=== PATIENT | female | born 1955 | race Caucasian/White ===

== ENCOUNTER 2024-09-27 17:57 | Emergency (ER) | payer OTHER, SELFPAY ==
--- NOTE | ~2024-09-27 | XR_ITS ---
EXAM: XR thoracic spine 3V DATE: 09/27/2024 18:46 HISTORY: fall, right mid back pain . COMPARISON: None available. FINDINGS: Vertebral body alignment intact. Vertebral body heights preserved. Multilevel moderate deg enerative disc disease. Flowing ossification of the anterior longitudinal ligament as can be seen wit h DISH. No traumatic malalignment or fracture. Visualized lung parenchyma is clear. Cholecystectomy c lips. IMPRESSION: No acute fracture or traumatic malalignment detected in the thoracic spine. Reviewed, dictated and finalized at location K. OR PROJECT MANAGER IMPRESSION: No acute fracture or traumatic malalignment detected in the thoraci c spine.
--- NOTE | ~2024-09-27 | XR_ITS ---
EXAMINATION: XR ribs RT 2V Exam Date/Time: 09/27/2024 18:34 PRESENTATION SPECIALIST HISTORY: fall-posterior rib pain Comparison: None available. RESULT: Lines, tubes, and devices: Cholecystectomy clips. ACDF hardware. Lungs and pleura: Clear. Cardiothymic silhouette: Stable. Other: No acute osseous or upper abdominal finding. IMPRESSION: No acute cardiopulmonary process. No acute osseous finding in the right ribs. Reviewed, dictated and finalized at location K. ENTATION SPECIALIST
--- NOTE | 2024-09-27 18:14 | ED.BACK ---
HPI - Back Pain/Injury General Chief Complaint: Back Pain/Injury Stated Complaint: Back Pain Time Seen by Provider: 09/27/24 17:59 Source: patient Mode of arrival: ambulatory Limitations: no limitations History of Present Illness HPI Narrative: Adele is a 68-year-old female patient presenting to the clinic today with complaints of right mid back pain and right posterior rib pain. She reports that she fell on the snow when a dog pulled her when she was walking the dog. Landed on her left hip and has an abrasion to the left elbow however she is complaining right mid back pain as well as the right posterior rib pain. States that she took Tylenol and a muscle relaxer around 2:00pm today and then took a Zofran for nausea around 4:30pm. Denies hitting her head or any loss of consciousness. Denies neck pain. Denies any loss of bowel or bladder. Denies any saddle anesthesia. Related Data Home Medications Medication Instructions Recorded Confirmed allopurinol 100 mg tablet 200 mg PO DAILY 09/27/24 09/27/24 atorvastatin 20 mg tablet 20 mg PO DAILY 09/27/24 09/27/24 bupropion HCl 150 mg 24 hr tablet, 150 mg PO DAILY 09/27/24 09/27/24 extended release lisinopril 10 mg tablet 10 mg PO DAILY 09/27/24 09/27/24 metoprolol succinate 50 mg 50 mg PO DAILY 09/27/24 09/27/24 tablet,extended release 24 hr ondansetron 4 mg disintegrating 4 mg PO PRN PRN Nausea 09/27/24 09/27/24 tablet tirzepatide 5 mg/0.5 mL 5 mg subcut WEEKLY 09/27/24 09/27/24 subcutaneous pen injector (Khrisuntaz) triamterene 37.5 1 tablet PO DAILY 09/27/24 09/27/24 mg-hydrochlorothiazide 25 mg tablet Allergies Allergy/AdvReac Type Severity Reaction Status Date / Time butorphanol [From Stadol] AdvReac Severe Hallucinati Verified 09/27/24 18:51 ng meperidine [From Demerol] AdvReac Intermediate Palpitation Verified 09/27/24 18:51 s Review of Systems Review of Systems: Pertinent positives per HPI. Patient denies any fever, chills, rash, headache, visual changes, dizziness, cough, runny nose, sore throat, shortness of breath, chest pain, palpitations, nausea, vomiting, diarrhea, constipation, abdominal pain, or any urinary issues. PMFSH Comments At the time of my signature, I reviewed and agree with the nursing past medical, surgical, social, and family history. There is no relevant family history pertinent to the patient complaint. Exam Narrative: General: Well-developed, well nourished, in no apparent distress Head: Normocephalic, atraumatic. Cardio: Regular rate and rhythm, s1 and s2 normal, no murmur appreciated. Resp: Clear to auscultation bilaterally, no rhonchi, rales, wheezing or rubs. Musculoskeletal: No deformity, abrasion to the left elbow-nontender to palpation, tender to palpation over the right mid thoracic back and right posterior rib, grossly normal range of motion, muscle strength strong and equal in BLE. SLT negative, patellar reflexes 2/4 bilaterally, negative foot drop, normal gait and station Course Course Emergency Course: Portions of this record may have been created with voice recognition software. Level of Care: Express Care Visit Vital Signs Vital signs: Vital Signs Temperature 36.0 C L 09/27/24 18:16 Pulse Rate 66 09/27/24 18:16 Respiratory Rate 16 09/27/24 18:16 Blood Pressure 129/62 09/27/24 18:16 Pulse Oximetry 100 09/27/24 18:16 Temperature 36.0 C L 09/27/24 18:16 Pulse Rate 66 09/27/24 18:16 Respiratory Rate 16 09/27/24 18:16 Blood Pressure 129/62 09/27/24 18:16 Pulse Oximetry 100 09/27/24 18:16 Vital signs reviewed MDM - Back Pain/Injury MDM Narrative Medical decision making narrative: At the time of visit patient is resting comfortably on the exam table. Patient appears to be nontoxic. Medications: Toradol 60 mg IM and Zofran 4 mg ODT given in the clinic today Diagnostics: X-ray of the thoracic spine and right ribs are negative for any sign of fracture or malalignment. Plan: I suspect patient has thoracic muscle strain, rib contusion, and abrasion to the left elbow. Will send in prescription for hydrocodone for moderate to severe pain. Supportive measures were discussed with the patient and they voiced understanding discharge instructions and agrees to treatment plan. Return precautions reviewed Differential Diagnosis Differential diagnosis: Likely thoracic back pain and other (Rib fracture, vertebral fracture, soft tissue injury, contusion, abrasion,) Discharge Plan Discharge Clinical Impression: Strain of muscle and tendon of back wall of thorax, initial encounter Contusion of rib on right side Qualifiers: Encounter type: initial encounter Qualified Code(s): S20.211A - Contusion of right front wall of thorax, initial encounter Abrasion of elbow Qualifiers: Encounter type: initial encounter Laterality: left Qualified Code(s): S50.312A - Abrasion of left elbow, initial encounter Patient Disposition: Home, Self-Care Condition: Stable Instructions: Antibiotic Form Additional Instructions: X-ray of the right ribs and thoracic spine were negative for any sign of fracture or malalignment. Toradol 60 mg IM and Zofran 4 mg ODT was given in the clinic today. May continue taking Tylenol as needed for pain as well as muscle relaxer. Take hydrocodone for moderate to severe pain as directed. This medication has Tylenol in it-do not exceed the more than 3 g of Tylenol per day Be mindful of sedation precautions given to you if taking a muscle relaxer. May use heat or ice to the affected area May use blue emu, lidocaine patches, or asper cream to affected area- do not apply heat or ice directly over cream- can cause burn. Complete appropriate back stretching exercises. Follow up with your PCP in 3-5 days if symptom persist. Prescriptions: New hydrocodone-acetaminophen 5-325 mg tablet 1 tablet PO Q6H PRN (Reason: pain) 3 Days Qty: 12 0RF No Action atorvastatin 20 mg tablet 20 mg PO DAILY metoprolol succinate 50 mg tablet extended release 24 hr 50 mg PO DAILY allopurinol 100 mg tablet 200 mg PO DAILY lisinopril 10 mg tablet 10 mg PO DAILY triamterene-hydrochlorothiazid 37.5-25 mg tablet 1 tablet PO DAILY ondansetron 4 mg tablet,disintegrating 4 mg PO PRN PRN (Reason: Nausea) bupropion HCl 150 mg tablet extended release 24 hr 150 mg PO DAILY Mounjaro 5 mg/0.5 mL pen injector 5 mg SUBCUT WEEKLY Follow-up/Referrals: PHYSICIAN,PERIOPERATIVE NURSE [Primary Care Provider] - Time of Disposition: 19:36 Quality NIHSS Nursing Documentation ED NIHSS nursing documentation: reviewed/agree
[2024-09-27 18:16] VITALS: BP 129/62; PULSE 66; RESP 16; TEMP 36; O2SAT 100
[2024-09-27] MEDS: ONDANSETRON HCL ODT 4 MG TABLET SUBLINGUAL (18:24)
[2024-09-27] MEDS: KETOROLAC (*BKC) 60 MG/2 ML VIAL IM (18:58)
== END 2024-09-27 19:38 | disposition home or self-care (01) ==
PROVIDERS: Emergency Provider Nurse Practitioner Family
DX: S29.012A Strain of muscle and tendon of back wall of thorax, initial encounter (principal); S29.011A Strain of muscle and tendon of front wall of thorax, initial encounter; W19.XXXA Unspecified fall, initial encounter; Y93.K1 Activity, walking an animal; Y92.9 Unspecified place or not applicable; S50.312A Abrasion of left elbow, initial encounter; E78.00 Pure hypercholesterolemia, unspecified; I10 Essential (primary) hypertension; M19.90 Unspecified osteoarthritis, unspecified site; F41.9 Anxiety disorder, unspecified; F32.A Depression, unspecified; Z86.16 Personal history of COVID-19
CPT/HCPCS: 71100; 72072; 96372; 99214; A9270; G0463; J1885